=== PATIENT | male | born 1970 | race Caucasian/White ===

== ENCOUNTER 2020-02-14 08:09 | Day surgery (SDC) | payer OTHER ==
[~2020-02-14] VITALS: Ht 170.2 cm; Wt 89.4 kg
[2020-02-14] MEDS ORDERED: fentaNYL citrate 0.05 MG/ML VIAL ONE (10:23)
[2020-02-14] MEDS ORDERED: diphenhydrAMINE 50 MG/ML VIAL ONE (10:23)
[2020-02-14] MEDS ORDERED: LIDOCAINE 2% 100 MG/5 ML UJET TP ONE (10:24)
[2020-02-14] MEDS ORDERED: fentaNYL citrate 0.05 MG/ML VIAL IVP ONE (11:20)
[2020-02-14] MEDS ORDERED: MIDAZOLAM 2 MG/2 ML VIAL IVP ONE (11:20)
== END 2020-02-14 11:45 | disposition home or self-care (01) ==
LOC: MFCC 08:09 → MDS 08:09
PROVIDERS: ATTEND Internal Medicine Gastroenterology
DX: Z12.11 Encounter for screening for malignant neoplasm of colon (principal); K63.5 Polyp of colon; E11.9 Type 2 diabetes mellitus without complications; Z87.891 Personal history of nicotine dependence; Z98.890 Other specified postprocedural states; Z79.84 Long term (current) use of oral hypoglycemic drugs; Z79.899 Other long term (current) drug therapy
CPT/HCPCS: 45385; J3010; J1200